=== PATIENT | male | born 1970 | race African-American/Black ===

== ENCOUNTER 2023-07-09 15:03 | Emergency (ER) | payer MEDICAID ==
[~2023-07-09] VITALS: Ht 172.7 cm; Wt 64.0 kg
[2023-07-09 15:05] VITALS: O2SAT 98
[2023-07-09] MEDS: IBUPROFEN 400MG TABLET PO ONE (15:59)
[2023-07-09] MEDS: BACITRACIN ZINC OINT UDPKT TOP ONE (15:59)
[2023-07-09] MEDS ORDERED: BO1 TP (16:28)
[2023-07-09] MEDS ORDERED: IBUP-2028 MT (16:28)
[2023-07-09 17:56] VITALS: BP 122/93; PULSE 63; RESP 18; TEMP 98.4
== END 2023-07-09 18:55 | disposition home or self-care (01) ==
LOC: ER 15:17
DX: S43.401A Unspecified sprain of right shoulder joint, initial encounter (principal); X58.XXXA Exposure to other specified factors, initial encounter; Y93.89 Activity, other specified; Y92.89 Other specified places as the place of occurrence of the external cause; Y99.8 Other external cause status
CPT/HCPCS: 73030; 99283